=== PATIENT | male | born 1935 | race Caucasian/White ===

== ENCOUNTER 2016-06-13 10:27 | Inpatient (IN) | payer MEDICARE ==
[~2016-06-13] VITALS: Ht 188 cm; Wt 70.0 kg
[~2016-06-13 10:27] MED LIST: BROVANA15 MCG/2 M INH; DIGOXIN125 MCG PO; FLOMAX0.4 MG PO; LEVAQUIN750 MG PO; MEDROL DOSEPAK 24 MG PO; METOPROLOL TART25 MG PO; PROAIR HFA8.5 GM INH; PULMICORT0.25 MG/2 INH; SPIRIVA HANDIH18 MCG INH; ZYRTEC10 MG PO
[2016-06-13 11:59] LABS: HEMOGLOBIN 13.5 gm/dl (14.0-17.5); RED BLOOD COUNT 4.64 M/UL (4.20-5.50)
[2016-06-14 05:16] LABS: HEMOGLOBIN 11.9 gm/dl (14.0-17.5); WHITE BLOOD COUNT 10.6 K/UL (4.5-11.0)
[2016-06-14 05:20] LABS: RED BLOOD COUNT 4.12 M/UL (4.20-5.50)
[2016-06-15 07:02] LABS: HEMOGLOBIN 11.3 gm/dl (14.0-17.5); RED BLOOD COUNT 3.89 M/UL (4.20-5.50); WHITE BLOOD COUNT 11.7 K/UL (4.5-11.0)
[2016-06-15 07:16] LABS: BUN/CREATININE RATIO 33 (0-10)
[2016-06-16 05:01] LABS: HEMOGLOBIN 11.4 gm/dl (14.0-17.5); RED BLOOD COUNT 4.01 M/UL (4.20-5.50); WHITE BLOOD COUNT 9.3 K/UL (4.5-11.0)
[2016-06-18 07:48] LABS: RED BLOOD COUNT 4.12 M/UL (4.20-5.50); WHITE BLOOD COUNT 9.3 K/UL (4.5-11.0)
[2016-06-18 08:06] LABS: BUN/CREATININE RATIO 20 (0-10)
[2016-06-22 04:56] LABS: RED BLOOD COUNT 4.19 M/UL (4.20-5.50); WHITE BLOOD COUNT 9.3 K/UL (4.5-11.0)
[2016-06-22 05:19] LABS: BUN/CREATININE RATIO 20 (0-10)
[2016-06-23] MEDS ORDERED: ASPIRIN EC81 MG PO (14:55)
[2016-06-23] MEDS ORDERED: VITAMIN B-1000 MCG/M IM (15:01)
[2016-06-23] MEDS ORDERED: FOLIC ACID1 MG PO (15:03)
[2016-06-23] MEDS ORDERED: PREDNISONE10 MG PO (15:05)
[2016-06-23] MEDS ORDERED: SPIRIVA HANDIH18 MCG INH (15:08)
[2016-10-26] MEDS ORDERED: PROTONIX40 MG PO (14:22)
[2016-10-26] MEDS ORDERED: IPRAT-ALBUT 0.5-3 ML INH (14:23)
[2016-10-26] MEDS ORDERED: PREDNISONE20 MG PO (14:24)
[2016-10-26] MEDS ORDERED: VITAMIN B-1000 MCG/M IM (14:26)
[2016-10-26] MEDS ORDERED: DULERA 100 MCG8.8 GM INH (15:07)
== END 2016-06-23 16:31 | disposition home health service (06) | DRG 191 ==
LOC: ER1 10:27 → ZEROF 14:43 → MED SURG 4 14:43
PROVIDERS: Internal Medicine; Physician Assistant; ADMIT Internal Medicine Infectious Disease
DX: J44.0 Chronic obstructive pulmonary disease with (acute) lower respiratory infection (principal); N17.9 Acute kidney failure, unspecified; J96.10 Chronic respiratory failure, unspecified whether with hypoxia or hypercapnia; J20.9 Acute bronchitis, unspecified; J44.1 Chronic obstructive pulmonary disease with (acute) exacerbation; D72.829 Elevated white blood cell count, unspecified; I10 Essential (primary) hypertension; N40.0 Benign prostatic hyperplasia without lower urinary tract symptoms; I48.0 Paroxysmal atrial fibrillation; Z86.718 Personal history of other venous thrombosis and embolism; I27.2 Other secondary pulmonary hypertension; I35.0 Nonrheumatic aortic (valve) stenosis; I25.10 Atherosclerotic heart disease of native coronary artery without angina pectoris; F03.90 Unspecified dementia, unspecified severity, without behavioral disturbance, psychotic disturbance, mood disturbance, and anxiety; M62.50 Muscle wasting and atrophy, not elsewhere classified, unspecified site; Z51.89 Encounter for other specified aftercare; E53.8 Deficiency of other specified B group vitamins; Z79.899 Other long term (current) drug therapy; Z88.0 Allergy status to penicillin; F17.210 Nicotine dependence, cigarettes, uncomplicated; Z80.9 Family history of malignant neoplasm, unspecified
CPT/HCPCS: 36415; 36600; 70450; 71010; 71020; 80048; 80053; 80061; 81001; 82140; 82550; 82553; 82607; 82746; 82803; 83735; 83874; 83880; 84439; 84443; 84484; 85025; 87040; 87086; 92610; 93005; 94640; 94664; 96365; 97110; 97116; 97530; 99285; J1650; J1956; J2920; J3420; J7030

== ENCOUNTER → 2016-07-11 | Outpatient (CLI) | payer MEDICARE ==
[~2016-07-11] MED LIST changes: +ASPIRIN EC81 MG PO; +DULERA 100 MCG8.8 GM INH; +FOLIC ACID1 MG PO; +IPRAT-ALBUT 0.5-3 ML INH; +PREDNISONE10 MG PO; +PREDNISONE20 MG PO; +PROTONIX40 MG PO; +VITAMIN B-1000 MCG/M IM
== END ==
LOC: HEART 5 15:23
DX: I35.0 Nonrheumatic aortic (valve) stenosis (principal); I48.0 Paroxysmal atrial fibrillation
CPT/HCPCS: 93306